=== PATIENT | male | born 1995 ===

== ENCOUNTER 2017-09-01 23:13 | Emergency (ER) | payer SELFPAY ==
[2017-09-01 23:53] LABS: ABSOLUTE EOSINOPHILS # (AUTO) 0.2 10^3/uL (0.0-0.6); ABSOLUTE MONOCYTES (AUTO) 0.9 10^3/uL (0.1-1.4); BASOPHILS % (AUTO) 0.4 % (0-2); HEMATOCRIT 44.1 % (37.9-51.0); LYMPHOCYTES % (AUTO) 28.3 % (13-45); MEAN CORPUSCULAR HEMOGLOBIN 28.6 pg (27.0-33.4); MEAN CORPUSCULAR HGB CONC 34.1 g/dL (32.0-36.0); MEAN CORPUSCULAR VOLUME 84 fl (80-97); MONOCYTES % (AUTO) 12.8 % (3-13); PLATELET COUNT 135 10^3/uL (150-450); RED BLOOD COUNT 5.25 10^6/uL (4.35-5.55); RED CELL DISTRIBUTION WIDTH 13.5 % (11.5-14.0); SEGMENTED NEUTROPHILS % (AUTO) 55.5 % (42-78); TOTAL CELLS COUNTED % (AUTO) 100 %; WHITE BLOOD COUNT 7.1 10^3/uL (4.0-10.5)
[2017-09-02 00:03] LABS: ALANINE AMINOTRANSFERASE 32 U/L (21-72); ALBUMIN 4.3 g/dL (3.5-5.0); ALKALINE PHOSPHATASE 75 U/L (38-126); ANION GAP 11 (5-19); ASPARTATE AMINO TRANSFERASE 27 U/L (17-59); BILIRUBIN,DIRECT 0.2 mg/dL (0.0-0.4); BILIRUBIN,TOTAL 0.3 mg/dL (0.2-1.3); BLOOD UREA NITROGEN 9 mg/dL (7-20); CALCIUM 9.3 mg/dL (8.4-10.2); CARBON DIOXIDE 29 mmol/L (22-30); CHLORIDE 105 mmol/L (98-107); GLUCOSE 89 mg/dL (75-110); POTASSIUM 3.7 mmol/L (3.6-5.0); SODIUM 145.3 mmol/L (137-145)
[2017-09-02] MEDS ORDERED: NORMAL SALINE 1000 ML 1,000 ML IV ONE ×2 (00:20→01:17)
[2017-09-02] MEDS ORDERED: ONDANSETRON HCL INJ/PF 4 MG/2 ML SDV IV ONE (00:20)
[2017-09-02] MEDS ORDERED: DICYCLOMINE HCL INJ 20 MG/2 ML AMPULE IM ONE (00:21)
--- NOTE | 2017-09-02 00:22 | ER Document Report ---
ED GI/ - General Chief Complaint: Abdominal Pain Stated Complaint: ABDOMINAL PAIN Time Seen by Provider: 09/02/17 00:11 Mode of Arrival: Medic Information source: Patient Notes: Patient presents complaining of diarrhea for the past 2 days. Patient also complains of nausea with generalized abdominal pain. Patient reports having diarrhea 4 episodes today. Patient denies any fever. Patient denies any blood in stool. Patient reports appetite has been normal. Patient does report recently returning to the [place] 3 days ago from [place] after staying there for 4 months. COUNTRY TRAVELED TO/FROM: [facility] Patient complains to provider of: Abdominal pain, Diarrhea. No: Vomiting Onset: Other - 2 days Timing/Duration: Persistent Quality of pain: Cramping Pain Level: 2 Location: Epigastric, Other - Umbilical Associated symptoms: Diarrhea, Nausea. denies: Blood in stool, Loss of appetite , Urinary hesitancy, Urinary frequency, Urinary retention, Vomiting Exacerbated by: Denies Relieved by: Denies Similar symptoms previously: No Recently seen / treated by doctor: No - Related Data Allergies/Adverse Reactions: No Known Allergies Allergy (Unverified 09/01/17 23:20) Past Medical History - General Information source: Patient - Social History Smoking Status: Never Smoker Frequency of alcohol use: None Drug Abuse: None Occupation: Retail Family History: Reviewed & Not Pertinent - Medical History Medical History: Negative Surgical Hx: Negative Review of Systems - Review of Systems Constitutional: No symptoms reported. denies: Fever, Recent illness EENT: No symptoms reported Cardiovascular: No symptoms reported. denies: Chest pain Respiratory: No symptoms reported. denies: Cough, Short of breath Gastrointestinal: Abdominal pain, Diarrhea, Nausea. denies: Vomiting, Constipation, Poor appetite, Rectal bleeding Genitourinary: No symptoms reported. denies: Dysuria, Flank pain Male Genitourinary: No symptoms reported Musculoskeletal: No symptoms reported. denies: Back pain Skin: No symptoms reported Hematologic/Lymphatic: No symptoms reported Neurological/Psychological: No symptoms reported. denies: Headaches Physical Exam - Vital signs Vitals: 97.8, 58, 16, 134/83, 98% - General General appearance: Appears well, Alert In distress: None - HEENT Head: Normocephalic, Atraumatic Eyes: Normal Conjunctiva: Normal Nasal: Normal Mouth/Lips: Normal Mucous membranes: Normal Pharynx: Normal Neck: Normal, Supple. No: Lymphadenopathy - Respiratory Respiratory status: No respiratory distress Chest status: Nontender Breath sounds: Normal. No: Productive cough, Rales, Rhonchi, Stridor, Wheezing Chest palpation: Normal - Cardiovascular Rhythm: Regular Heart sounds: S1 appreciated, S2 appreciated Murmur: No - Abdominal Inspection: Normal Distension: No distension Bowel sounds: Normal Tenderness: Tender - epigastric, umbilical Organomegaly: No organomegaly - Back Back: Normal, Nontender. No: CVA tenderness - Extremities General upper extremity: Normal inspection, Normal ROM General lower extremity: Normal inspection, Normal ROM - Neurological Neuro grossly intact: Yes Cognition: Normal Bere Coma Scale Eye Opening: Spontaneous Bere Coma Scale Verbal: Oriented Bere Coma Scale Motor: Obeys Commands [place] Coma Scale Total: 15 - Psychological Associated symptoms: Normal affect, Normal mood - Skin Skin Temperature: Warm Skin Moisture: Dry Skin Color: Normal Course - Re-evaluation Re-evalutation: 09/02/17 01:17 Patient reports that abdominal tenderness is starting to improve. Patient denies any nausea at this time. Patient has tolerated sips of water without any emesis. 09/02/17 01:50 Patient without any abdominal tenderness at this time. Patient without any vomiting or diarrhea during ER stay. Discussed worsening symptoms of patient to return immediately for. Patient verbalized understanding and is agreeable with discharge plan of care at this time. Patient presents with abdominal pain without signs of peritonitis or other life-threatening or serious etiology. Patient appears stable for discharge and has been instructed to return immediately if the symptoms worsen in any way, or in 8-12 hours if not improved for reevaluation. The patient has been instructed to return if the symptoms worsen or change in any way. - Laboratory Result Diagrams: 09/01/17 20:35 09/01/17 20:35 Laboratory results interpreted by me: 09/01/17 09/01/17 20:35 20:35 Plt Count 135 L Sodium 145.3 H 09/02/17 01:51 Labs- Entire Visit 09/01/17 09/01/17 09/01/17 20:35 20:35 20:35 WBC 7.1 RBC 5.25 Hgb 15.0 Hct 44.1 MCV 84 MCH 28.6 MCHC 34.1 RDW 13.5 Plt Count 135 L Seg Neutrophils % 55.5 Lymphocytes % 28.3 Monocytes % 12.8 Eosinophils % 3.0 Basophils % 0.4 Absolute Neutrophils 4.0 Absolute Lymphocytes 2.0 Absolute Monocytes 0.9 Absolute Eosinophils 0.2 Absolute Basophils 0.0 Sodium 145.3 H Potassium 3.7 Chloride 105 Carbon Dioxide 29 Anion Gap 11 BUN 9 Creatinine 0.82 Est GFR ( Amer) > 60 Est GFR (Non-Af Amer) > 60 Glucose 89 Calcium 9.3 Total Bilirubin 0.3 Direct Bilirubin 0.2 Neonat Total Bilirubin Not Reportable Neonat Direct Bilirubin Not Reportable Neonat Indirect Bili Not Reportable AST 27 ALT 32 Alkaline Phosphatase 75 Total Protein 7.0 Albumin 4.3 Lipase 126.8 Discharge - Discharge Clinical Impression: Nausea, Resolved abdominal pain Diarrhea Qualifiers: Diarrhea type: unspecified type Qualified Code(s): R19.7 - Diarrhea, unspecified Condition: Stable Disposition: HOME, SELF-CARE Instructions: Abdominal Pain ([facility]), Antispasmodics ([facility]), Diarrhea, Nonspecific ([facility]), Antinausea Medication ([facility]) Additional Instructions: Return immediately for any new or worsening symptoms Followup with your primary care provider, call tomorrow to make a followup appointment Prescriptions: Dicyclomine HCl [Bentyl 20 mg Tablet] 20 mg PO QID #10 tablet Ondansetron HCl [Zofran 4 mg Tablet] 1 - 2 tab PO Q6 PRN #12 tablet PRN Reason: Referrals: [facility] [place] [Provider Group] - Follow up as needed
[2017-09-02 00:32] LABS: LIPASE 126.8 U/L (23-300)
[2017-09-02 02:16] VITALS: BP 131/80
== END 2017-09-02 02:17 | disposition home or self-care (01) ==
LOC: ER 23:13
DX: R19.7 Diarrhea, unspecified (principal); R11.0 Nausea; R10.84 Generalized abdominal pain
CPT/HCPCS: 99284; 96372; 96361; 96374; 36415; 83690; 85025; 80053; J0500; J2405; J7030